=== PATIENT | male | born 1940 | race Caucasian/White ===

== ENCOUNTER → 2017-07-07 | Outpatient (CLI) | payer MEDICARE, BC ==
[~2017-07-07] MED LIST: CALC0.25 PO; CINA30 PO; CLON0.1T PO; DOCU1CAP39 PO; FLOR250C PO; HYDR-3533 PO; LOVA20TA PO; MYCO250 PO; PERC5TAB12 PO; PRED5TAB PO; PROBCAP4 PO; PROC20005 SQ; RANI150T PO; SAW160TA PO; SERT50 PO; SODI453. PO; TACR1 PO; TAMS0.4C67 PO; TAMS5CAP PO; ZOCO5TAB PO
[2017-07-07 07:58] LABS: ALBUMIN 3.5 GM/DL (3.4-5.0); BICARBONATE 22.6 MEQ/L (21.0-32.0); CALCIUM 9.7 MG/DL (8.5-10.1); PHOSPHORUS 3.6 MG/DL (2.5-4.9)
[2017-07-07 07:59] LABS: CREATININE 2.78 MG/DL (0.60-1.30)
== END ==
LOC: CLAB 06:50
PROVIDERS: ATTEND Internal Medicine Nephrology
DX: Z94.0 Kidney transplant status (principal); E87.5 Hyperkalemia
CPT/HCPCS: 36415; 80069; 80197